=== PATIENT | female | born 2000 | race African-American/Black ===

== ENCOUNTER 2022-09-06 22:01 | Emergency (ER) | payer OTHER ==
--- OUTSIDE RECORDS SUMMARY | 2022-09-06 22:04 | XMS REPORT | Continuity of Care Document ---
:2000 Author Organization [facility] t Address [address] [place] [address] Care Team Providers Name Role Phone DEBI REYNOSO Primary Care Physician Unavailable MD ORACIO SANCHES Attending Clinician Unavailable ORACIO SANCHES Attending Clinician Unavailable RADIOLOGY Attending Clinician Unavailable Radiology Attending Clinician Unavailable MD ORACIO SANCHES Admitting Clinician Unavailable DARLING CORBETT Admitting Clinician Unavailable Payers Payer Name Policy Type Policy Number Effective Date Expiration Date Irvin [facility] [id number] 2015 00:00:00 Problems Condition Condition Condition Status Onset Resolution Last Treating Co mments Source Name Details Category Date Date Treatment Clinician Date No known No known Disease Unive rs active active ity of problems problems [facility] Allergies, Adverse Reactions, Alerts Allergy Allergy Status Severity Reaction(s) Onset Inactive Treating Comm ents Source Name Type Date Date Clinician Levonorg Propensi Active Shortness of Univers estrel-E ty to Breath 1-23 ity of thinyl adverse 00:00: [place] Estrad reaction 00 Medical s Branch LEVONORG DRUG Active SOB Univers ESTREL-E 1-23 ity of THINYL 00:00: [place] ESTRAD 00 Medical Branch Social History Social Habit Start Date Stop Date Quantity Comments Source Exposure to Not sure [facility] SARS-CoV-2 (event) Medica l Branch Sex Assigned At [birth year] [facility] 00:00:00 00:00:00 Smoking Status Start Date Stop Date Source Tobacco smoking consumption unknown [facility] Medications Ordered Filled Start Stop Current Ordering Indication Dosage Frequency Signature Comments Components Source Medication Medication Date Date Medication? Clinician (SIG) Name Name azithromyci Yes 250mg Take 1 Tab Univers n 1-23 by mouth ity of (ZITHROMAX 00:00: daily. [place] Z-CROW) 250 00 Medical mg tablet Branch albuterol Yes 2{puff} Inhale 2 U nivers (VENTOLIN) 1-23 Puffs ity of 90 00:00: every 4 [place] mcg/actuati 00 (four) Medica l on inhaler hours as Branc h needed for Wheezing or Shortness of Breath. willian Yes 250mg Take 1 Tab Univers n 1-23 by mouth ity of (ZITHROMAX 00:00: daily. [place] Z-CROW) 250 00 Medical mg tablet Branch albuterol Yes 2{puff} Inhale 2 U nivers (VENTOLIN) 1-23 Puffs ity of 90 00:00: every 4 [place] mcg/actuati 00 (four) Medica l on inhaler hours as Branc h needed for Wheezing or Shortness of Breath. Procedures Procedure Date / Time Performed Performing Clinician Anthony e XR ANKLE 3+ VW LEFT 2020-03-02 17:30:58 Darling Corbett [facility] XR FOOT 3+ VW LEFT 2020-03-02 17:30:37 Ifeanyi [facility] Plan of Care Planned Activity Planned Date Details Comments Source Future Scheduled 2022-08-06 HEPATITIS B VACCINES [facility] Test 04:56:22 (1 of 3 - 3-dose series) [code = HEPATITIS B VACCINES (1 of 3 - 3-dose series)] Future Scheduled 2022-08-06 COVID-19 VACCINE (#1) [facility] Hospital Test 04:56:22 [code = COVID-19 VACCINE (#1)] Future Scheduled 2022-08-06 Scre[facility] Test 04:56:22 Chlamydia trachomatis (procedure) [code = 608202424] Future Scheduled 2022-08-06 [facility] Test 04:56:22 malignant neoplasm of cervix (procedure) [code = 674858828] Future Scheduled 2022-08-06 INFLUENZA VACCINE [facility] Test 04:56:22 [code = INFLUENZA VACCINE] Encounters Start End Encounter Admission Attending Care Care Encounter Source Date/Time Date/Time Type Type Clinicians Facility Department ID 2020-06-01 2020-06-01 Outpatient [facility] [id number] [place] 00:00:00 00:00:00 ORACIO jensen 2020-03-10 2020-03-10 Outpatient R RADIOLOGY [facility] [id number] Univers 00:00:00 00:00:00 ity of [facility] 2020-03-08 2020-03-08 Outpatient R RADIOLOGY [facility] [id number] Univers 00:00:00 00:00:00 ity of [facility] 2020-03-02 2020-03-02 Outpatient R RADIOLOGY [facility] [id number] Univers 11:54:17 11:54:00 ity [facility] 2020-03-02 2020-03-02 [facility] Radiology [facility] [id number] Univers 11:54:00 11:54:00 Encounter [place] [id number] ity of [place] [id number] [facility] [id number] [place] [address] Branch 2020-03-02 2020-03-02 [facility] Radiology [facility] [id number] Univers 11:54:00 11:54:00 Encounter [place] [id number] ity of [place] [id number] [facility] [id number] [address] Results Test Description Test Time Test Comments Results Result Comments Source SARS-CoV-2 (COVID-19) RNA [Presence] in Respiratory sp ecimen by 2020-06-02 04:17:23 RHYS with probe detection Test Item Value Reference Range Interpretation Comme nts SARS-CoV-2 (COVID-19) RNA [Presence] in Respiratory Not detected No t-Detected specimen by RHYS with probe detection (test code = 95558-8) HERZOG JAIN WESTXR FOOT 3+ VW [id number] 17:43:17 Questionable lateral subluxation at Lisfranc's interval with dorsal softtissue swelling. These findi ngs may be further characterized with forefootstress views. No acute bony abnormality seen. EXAM: XRFOOT 3+ VW LEFT, EXAM: XR ANKLE 3+ VW LEFT HISTORY: foot injury COMPARISON: None FINDINGS: Imaging of the foot and ankle demonstrates dorsal forefoot soft tissueswelling is seen. No fracture is identified. There is minimal lateraloffset at the second TMT joint. [facility], [facility] Results Inft User - 03/02/2020 12:44 PM CDTEXAM:XR FOOT 3+ VW LEFT,EXAM:XR ANKLE 3+ VW LEFTHISTORY:foot injury COMPARISON:NoneFINDINGS: Imaging of the foot and ankle demonstrates dorsal forefoot soft tissueswelling is seen. No fracture is identified. There is minimal lateraloffset at the second TMT joint.IMPRESSIONQuestionable lateral subluxation at Lisfranc's interval with dorsal softtissue swelling. These findings may be further characterized with forefootstress views. No acute bony abnormality [facility] [id number] 17:43:17 Questionable lateral subluxation at Lisfranc's interval with dorsal softtissue swelling. These findi ngs may be further characterized with forefootstress views. No acute bony abnormality seen. EXAM: XRFOOT 3+ VW LEFT, EXAM: XR ANKLE 3+ VW LEFT HISTORY: foot injury COMPARISON: None FINDINGS: Imaging of the foot and ankle demonstrates dorsal forefoot soft tissueswelling is seen. No fracture is identified. There is minimal lateraloffset at the second TMT joint. [facility], [facility] Results Inft User - 03/02/2020 12:44 PM CDTEXAM:XR FOOT 3+ VW LEFT,EXAM:XR ANKLE 3+ VW LEFTHISTORY:foot injury COMPARISON:NoneFINDINGS: Imaging of the foot and ankle demonstrates dorsal forefoot soft tissueswelling is seen. No fracture is identified. There is minimal lateraloffset at the second TMT joint.IMPRESSIONQuestionable lateral subluxation at Lisfranc's interval with dorsal softtissue swelling. These findings may be further characterized with forefootstress views. No acute bony abnormality seen.[facility]
--- NOTE | 2022-09-07 00:04 | ER ---
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 Coronavirus screen: At this time, the client does not indicate any symptoms associated with coronavirus-19. Ebola Screen: No symptoms or risks identified at this time. Initial Sepsis Screen: Does the patient meet any 2 criteria? No. Patient's initial sepsis screen is negative. Does the patient have a suspected source of infection? No. Patient's initial sepsis screen is negative. Risk Assessment: Do you want to hurt yourself or someone else? Patient reports no desire to harm self or others. Onset of symptoms was September 06, 2022. 22:09 Method Of Arrival: Ambulatory hb 22:09 Acuity: REGULO 4 hb Historical: - Allergies: 22:15 tramadol; hb - Immunization history:: Flu vaccine is not up to date. - Social history:: Smoking status: Patient denies any tobacco usage or history of. Screenin/09 00:13 Abuse screen: Denies threats or abuse. Denies injuries from another. Nutritional tw5 screening: No deficits noted. Tuberculosis screening: No symptoms or risk factors identified. Fall Risk None identified. Assessment: 00:13 General: Appears in no apparent distress. Behavior is calm, cooperative, appropriate tw5 for age. Pain: Pain currently is 4 out of 10 on a pain scale. Vital Signs: 09/06 22:09 BP 130 / 70; Pulse 72; Resp 16; Temp 98.2; Pulse Ox 100% on R/A; Weight 88.45 kg; hb Height 5 ft. 4 in. (162.56 cm); Pain 9/10; 22:09 Body Mass Index 33.47 (88.45 kg, 162.56 cm) hb ED Course: 22:04 Patient arrived in ED. jj6 22:12 Triage completed. hb 22:16 Arm band placed on. hb 22:52 Hand Right 3 View XRAY In Process Unspecified. EDMS 23:06 Hossein Yin MD is Attending Physician. [facility] 09/07 00:13 Jolly Hatfield is Primary Nurse. tw 00:13 Patient has correct armband on for positive identification. tw5 00:13 No provider procedures requiring assistance completed. Patient did not have IV access tw5 during this emergency room visit. Administered Medications: No medications were administered Outcome: 00:03 Discharge ordered by . [facility] 00:13 Discharged to home ambulatory. tw 00:13 Condition: good 00:13 Discharge instructions given to patient, Instructed on discharge instructions, follow up and referral plans. medication usage, Demonstrated understanding of instructions, follow-up care, medications, Prescriptions given X 1. 00:14 Patient left the ED. tw5 Signatures: Dispatcher [employer] EDNV Hossein Yin MD MD cha Baxter, Heather, RN RN Jolly Hatfield tw5 Jazmine Jones jj6 Corrections: (The following items were deleted from the chart) 09/06 22:16 22:15 Allergies: No Known Allergies; hb 22:16 22:15 Allergies: Tramadol-Acetaminophen; hb
--- NOTE | 2022-09-07 00:04 | EDPHYS ---
Physician Documentation [facility] Name: Mai Crowell Age: 22 yrs Sex: Female : 2000 Arrival Date: 09/06/2022 Time: 22:04 Bed 11 Private MD: Hossein Dunn Historical: - Allergies: 09/06 22:15 tramadol; hb - Immunization history:: Flu vaccine is not up to date. - Social history:: Smoking status: Patient denies any tobacco usage or history of. Vital Signs: 22:09 BP 130 / 70; Pulse 72; Resp 16; Temp 98.2; Pulse Ox 100% on R/A; Weight 88.45 kg; hb Height 5 ft. 4 in. (162.56 cm); Pain 9/10; 22:09 Body Mass Index 33.47 (88.45 kg, 162.56 cm) hb MDM: 23:06 Patient medically screened. garrison 09/06 22:15 Order name: Hand Right 3 View XRAY hb Administered Medications: No medications were administered Disposition Summary: 09/07/22 00:03 Discharge Ordered Location: Home garrison Problem: new garrison Symptoms: are unchanged garrison Condition: Stable garrison Diagnosis - Other sprain of right thumb garrison Followup: garrison - With: Private Physician - When: 2 - 3 days - Reason: Recheck today's complaints, Continuance of care, Re-evaluation by your physician Discharge Instructions: - Discharge Summary Sheet garrison - Thumb Sprain garrison Forms: - Medication Reconciliation Form garrison - Thank You Letter garrison - Antibiotic Education garrison - Prescription Opioid Use garrison Prescriptions: - Ibuprofen 600 mg Oral Tablet - take 1 tablet by ORAL route every 6 hours As needed take with food; 30 tablet; [facility] Refills: 0, Product Selection Permitted Signatures: Dispatcher [employer] Hossein Andrade MD MD cha Baxter, Heather, RN RN Jolly Salvador tw5 Corrections: (The following items were deleted from the chart) 22:16 22:15 Allergies: No Known Allergies; hb hb 22:16 22:15 Allergies: Tramadol-Acetaminophen; hb hb
[2022-09-07] MEDS ORDERED: IBUPROFEN 400 MG TAB ONE (00:13)
[2022-09-07] MEDS ORDERED: IBUPROFEN 200 MG TAB PO ONE (00:13)
[2022-09-07 02:23] VITALS: BP 130/70; TEMP 98.2; O2SAT 100
--- NOTE | 2022-09-07 09:31 | RAD REPORT ---
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 FINDINGS: 3 X-ray views of the right hand (Frontal, lateral and oblique views) were performed. No acute bony injuries were demonstrated. No gross articular or soft tissue abnormality is identifi ed. There are no gross intraosseous lesions. No periosteal reaction were seen. Carpal bones demon strate normal alignment. IMPRESSION: No acute bony injuries were demonstrated. Electronically signed by: Zachary Cabrales MD 09/06/2022 11:07 PM [employer] Due to temporary technical issues with the PACS/Fluency reporting system, reports are being signed by the in house radiologists without review as a courtesy to insure prompt reporting. The interpreting radiologist is fully responsible for the content of the report.
== END 2022-09-07 00:14 | disposition home or self-care (01) ==
LOC: ER 22:01
DX: S63.681A Other sprain of right thumb, initial encounter (principal); Z88.5 Allergy status to narcotic agent
CPT/HCPCS: 99283